=== PATIENT | male | born 1980 | race Caucasian/White ===

== ENCOUNTER 2025-03-01 13:01 | Emergency (ER) | payer BC, MEDICAID ==
[~2025-03-01] VITALS: Ht 182.9 cm; Wt 97.5 kg
[2025-03-01 13:18] VITALS: BP 134/73; TEMP 98.6
[2025-03-01] MEDS ORDERED: DOXY100C2 PO (13:47)
[2025-03-01] MEDS ORDERED: DOXYCYCLINE HYCLATE (100 MG) 100 MG TABLET ONE (13:53)
[2025-03-01] MEDS: DOXYCYCLINE HYCLATE (100 MG) 100 MG TABLET PO ONE (13:56)
[2025-03-01 14:25] VITALS: O2SAT 99
== END 2025-03-01 14:26 | disposition home or self-care (01) ==
LOC: ER 13:09
DX: L03.116 Cellulitis of left lower limb (principal); Z88.0 Allergy status to penicillin